=== PATIENT | female | born 1940 | race Caucasian/White ===

== ENCOUNTER 2016-07-20 06:58 | Inpatient (IN) | payer OTHER, MEDICARE ==
[2016-06-14 11:05] VITALS: BMI 27.0
--- NOTE | 2016-06-14 11:31 | PAT Medication Instructions ---
Service Date Jun 14, 2016. Current Home Medication List Amlodipine (Norvasc), 10 MG PO HS Atenolol (Tenormin), 25 MG PO QAM Fenofibrate (Tricor), 67 MG PO QAM Ewjwikpsxme-Eqaqgjiuokw-Gzl C- (Glucosamine Chondroitin), 1 TAB PEG QAM Levothyroxine Sodium (Levothyroxine Sodium), 1 TAB PO QAM Multivitamin (Multivitamin), 1 TAB PO QAM Pravastatin (Pravachol ), 80 MG PO HS Medication Instructions For Your Scheduled Surgery - Hold the following medications 2 weeks prior to surgery: Vylcidsvvki-Estptquiacw-Gsy C- (Glucosamine Chondroitin), 1 TAB PEG QAM - Hold the following medications the morning of surgery: Multivitamin (Multivitamin), 1 TAB PO QAM Fenofibrate (Tricor), 67 MG PO QAM - Take the following medications the morning of surgery with a sip of water: Levothyroxine Sodium (Levothyroxine Sodium), 1 TAB PO QAM Atenolol (Tenormin), 25 MG PO QAM - Take the following medications as scheduled the night before surgery: Pravastatin (Pravachol ), 80 MG PO HS Amlodipine (Norvasc), 10 MG PO HS If you have any questions please call us at [phone] (Katie Valverde PA-C) or [phone] or [phone]
[2016-06-14 12:21] LABS: BASO % 0.8 %; BASO ABS # 0.05 K/uL (0-0.2); COMPLETE YES; EOS % 1.7 %; HEMATOCRIT 41.4 % (37-47); IG% 0.2 %; LYMPH % 27.3 %; LYMPH ABS # 1.75 K/uL (1.2-3.4); MEAN CORPUSCULAR HEMOGLOBIN 28.8 pg (25-34); MEAN CORPUSCULAR HGB CONC 34.3 g/dl (32-36); MEAN PLATELET VOLUME 8.6 fL (7.4-10.4); MONO % 8.1 %; NEUT % 61.9 %; PLATELET COUNT 333 K/uL (130-400); RED BLOOD COUNT 4.93 M/uL (4.2-5.4); WHITE BLOOD COUNT 6.41 K/uL (4.8-10.8)
[2016-06-14 12:23] LABS: URINE APPEARANCE CLEAR (CLEAR); URINE BILIRUBIN NEG (NEG); URINE COLOR YELLOW; URINE EPITHELIAL CELL AUTO 0-5 /lpf (0-5); URINE NITRITE NEG (NEG); URINE SPECIFIC GRAVITY 1.009 (1.000-1.030); UROBILINOGEN NEG (NEG); ZZUR CULT IF INDIC CLEAN CATCH NO
[2016-06-14 12:32] LABS: PARTIAL THROMBOPLASTIN RATIO 1.1; PROTHROMBIN TIME (PATIENT) 10.2 SECONDS (9.0-12.0)
--- NOTE | 2016-06-14 12:46 | DIAGNOSTIC IMAGING REPORT ---
CHEST PREADMISSION(PA/LAT) CLINICAL HISTORY: Preoperative evaluation. COMPARISON STUDY: No previous studies for comparison. FINDINGS: Lung volumes are normal. There is no pneumothorax or pleural effusion. Cardiac size is normal. There is a calcified 1.8 cm right paratracheal lymph node. There is a calcified 7 mm right lower lung granuloma, likely within the lower lobe. There is no evidence of pulmonary edema. IMPRESSION: No acute cardiopulmonary findings. Electronically signed by: Yeyo Aguilar M.D. 06/14/2016 12:44 PM Dictated Date/Time: 06/14/2016 12:43 PM
[2016-06-14 12:52] LABS: MANUAL MICROSCOPIC REQUIRED? NO; REVIEW REQ? NO
[2016-06-14 13:30] LABS: ESTIMATED AVERAGE GLUCOSE 114 mg/dl; HA1C FLAG Normal (Normal)
[2016-06-14 13:58] LABS: BUN/CREATININE RATIO 15.8 (10-20); CALCIUM 9.4 mg/dl (8.5-10.1); CREATININE 0.9 mg/dl (0.60-1.20); POTASSIUM 4.2 mmol/L (3.5-5.1)
--- NOTE | 2016-06-22 19:15 | History and Physical ---
History & Physical Date Jun 22, 2016. Chief Complaint left knee pain History of Present Illness Ms Lutz is a 75 year old female who is here for a follow up of left knee pain. She presents with pain on the left side. She states that the symptoms have been chronic non-traumatic. The symptoms occur constantly with intermittent worsening. The problem is worse. Currently the patient states that the symptoms are moderate-severe. The pain is described as aching, discomforting and throbbing. The symptoms occur continuously. The symptoms are aggravated by ascending stairs, daily activities, descending stairs, first steps while awake, kneeling, movement, repetitive activities, sleeping on the affected side, squatting, standing and walking. Marzena states that the symptoms are relieved by no specific activity. In addition to left knee pain the patient is also experiencing decreased mobility, difficulty bending, difficulty going to sleep, limping, nighttime awakening, pain, stiffness, tenderness and weakness. Pertinent negatives include chills and fever. The patient has had a previous x- ray. New x-rays obtained today in our office. She has been treated with a corticosteroid injection on the right and left side equally. Patient has been treated with previous Supartz series injections to bilateral knees. Past Medical/Surgical History Past Medical History 1. Hypertension 2. High Cholesterol 3. Hypothyroidism 4. GERD Past Surgical History 1. left breast lumpectomy 2. rectal resection 1985 3. hysterectomy 1988 Additional History Hepatic Disease: No Kidney Disease: No Hypertension: Yes Heart Disease: No Bleeding Tendencies: No Infectious Diseases: No Allergies Coded Allergies: Adhesives (Verified Allergy, Unknown, SKIN IRRITATION WITH SOME BANDAIDS, 06/14/16) Hydrocodone (Verified Allergy, Unknown, ITCHY, 06/14/16) Home Medications Scheduled Amlodipine (Norvasc), 10 MG PO HS Atenolol (Tenormin), 25 MG PO QAM Fenofibrate (Tricor), 67 MG PO QAM Edeompiluzs-Hlqiyywiulq-Nvm C- (Glucosamine Chondroitin), 1 TAB PEG QAM Levothyroxine Sodium (Levothyroxine Sodium), 1 TAB PO QAM Multivitamin (Multivitamin), 1 TAB PO QAM Pravastatin (Pravachol ), 80 MG PO HS Physical Examination Skin: warm/dry, no rash Eyes: normal inspection, EOMI, sclerae normal ENT: normal ENT inspection, pharynx normal Head: normocephalic, atraumatic Neck: supple, no adenopathy, trachea midline Respiratory/Chest: lungs clear, normal breath sounds, no respiratory distress Cardiovascular: regular rate, rhythm, no edema, no murmur Abdomen / GI: normal bowel sounds, non tender Addiitonal Comments: Left Knee Physical Exam Exam Findings Details Knee ROM L * Active ROM - Flexion: 100 degrees, Extension: 5 degrees, Factors: pain, Description: Active painful ROM. Knee ROM R * Active ROM - Flexion: 100 degrees, Extension: 5 degrees, Factors: pain, Description: Active painful ROM. Strength LE Normal Strength Description - Normal lower extremity: Bilateral. Knee * Inspection - Gait: Limp. Alignment - Right: neutral, Left: varus, Clinical. Ecchymosis - Right: negative, Left: negative. Effusion - Right: mild, Left: mild. Skin - Left: surgical scars. Swelling - Right: mild, Left: mild. Maximum tenderness - Right: Medial Joint Line, Left: Medial Joint Line. Patella exam - Crepitation - Right: mild, Left: mild. Patella position - Right: neutral , Left: neutral. [facility]'s - medial - Right: Positive, Left: Positive. Knee Normal Inspection - Atrophy - Right: Absent, Left: Absent. Skin - Right: Normal. Patella exam - Apprehension - Right: Negative, Left: Negative. Q-angle - Right: Normal, Left: Normal. Oly's - Right: Negative, Left: Negative. Alvin's - lateral - Right: Negative, Left: Negative. Posterior drawer - Right : Negative, Left: Negative. Anterior drawer - Right: Negative, Left: Negative. Valgus stress - Right: Negative, Left: Negative. Varus stress - Right: Negative , Left: Negative. Extensor lag - Right: Normal, Left: Normal. Neurovascular LE Normal Neurovascular examination including reflexes, sensation , and pulses is within normal limits. Diagnostics: Study Result/Report X-RAY Knee 4 Or More Views LT knee See Details Standing weight bearing flexed knee PA views reveal [id number]-ss-fsfk articulation of the medial compartment of the knee. 90 degree flexed lateral views reveal maintenance of the joint space consistent with an intact ACL. Osteophyte formation is noted. The patellofemoral articulation showing degenerative changes. The lateral compartment is well maintained. ASSESSMENT: Severe anteromedial arthritis of the knee. bone on bone medial compartment Diagnosis Left Knee DJD -Further care discussed with patient and at this point in time has failed conservative measures and would like to proceed with a left total knee replacement. Plan on discharge will be home with home health physical therapy. DVT prophalaxis with TEDs, SCDs and will also place on aspirin 81 mg p.o. b.i.d. for a month postop. Patient will have follow up appointment in our office two weeks post op for staple/suture removal and re-evaluation. Patient otherwise has no other questions or concerns.
[2016-07-20] VITALS (8 sets, daily range): BP systolic 110–154; BP diastolic 63–80; PULSE 75–89; TEMP 36.6–37.3; O2SAT 93–97; Ht 162.6 cm; Wt 72.3 kg
[~2016-07-20] VITALS: Ht 162.6 cm; Wt 72.3 kg
--- NOTE | 2016-07-20 06:51 | History & Physical Bridge Note ---
H&P Re-Evaluation Bridge Note: I have examined the patient, reviewed the History & Physical and in the interval since the performance of the History & Physical I have noted the following changes of clinical significance: No changes noted
[~2016-07-20 06:58] MED LIST: ACETAMINOPHEN 500 MG TAB PO SCH; AMLO-114 PO; ATEN-173 PO; CEFAZOLIN 2000 MG/60 ML D5W 60 ML IV SCH; CeleBREX 200 MG CAP PO SCH; DEXAMETHASONE 4 MG TAB PO SCH; FAMOTIDINE 20 MG TAB PO SCH; FENO67CA2 PO; GABAPENTIN 300 MG CAP PO SCH; GLUCTAB7 PO; LACTATED RINGER'S 1000ML 1,000 ML IV SCH; LACTATED RINGER'S 1000ML 500 ML IV ONE; LACTATED RINGER'S 1000ML IV SCH; LEVO50TA6 PO; METOCLOPRAMIDE HCL 10 MG TAB PO SCH; MULT-506 PO; PRAV20TA PO; ROPIVACAINE 5MG/ML 30 ML 150 MG, BUPIVACAINE/EPINEPHR 0.5% MPF 30 ML, KETOROLAC TROMETH... INFIL SCH
[2016-07-20] MEDS ORDERED: Atenolol PO (07:26)
[2016-07-20] MEDS ORDERED: BUPIVACAINE 0.25% 30 ML VIAL ONE (07:34)
[2016-07-20] MEDS ORDERED: BUPIVACAINE 0.5 % 5 MG/1 ML PF 10ML VIAL ONE (07:34)
[2016-07-20] MEDS ORDERED: MIDAZOLAM HCL 1 MG/ML 2ML VIAL ONE (08:28)
[2016-07-20] MEDS ORDERED: FENTANYL CITRATE INJ 50 MCG/1 ML 2 ML VIAL ONE (08:28)
[2016-07-20] MEDS ORDERED: LACTATED RINGER'S 1000ML 1,000 ML IV PRN (08:40)
[2016-07-20] MEDS ORDERED: FENTANYL CITRATE INJ 50 MCG/1 ML 2 ML VIAL IV PRN (08:45)
[2016-07-20] MEDS ORDERED: ONDANSETRON INJ 2 MG/ML 2 ML VIAL IV PRN ×2 (08:45→10:45)
[2016-07-20] MEDS ORDERED: POVIDONE-IODINE OP SOLN 30 ML BTL ONE (08:53)
[2016-07-20] MEDS ORDERED: ORTHO JOINT ANESTHETIC ONE (08:53)
[2016-07-20] MEDS ORDERED: BACITRACIN 50000 UNIT VIAL ONE (08:53)
[2016-07-20] MEDS: TRANEXAMIC ACID INJ 1,000 MG in SODIUM CHLORIDE 0.9% 100ML 100 ML IV SCH ×2 (09:15→13:56)
[2016-07-20] MEDS ORDERED: PROPOFOL IV EMULSION 10 MG/ML 20 ML VIAL IV ONE (09:52)
[2016-07-20] MEDS ORDERED: LIDOCAINE HCL 2% 2 ML VIAL (20MG/ML) ONE (09:52)
[2016-07-20] MEDS ORDERED: PHENYLEPHRINE 100MCG/ML 5ML SYR ONE (10:01)
--- NOTE | 2016-07-20 10:35 | [facility] Post Operative Brief Note ---
Immediate Operative Summary Operative Date July 20, 2016. Pre-Operative Diagnosis Left knee degenerative joint disease Post-Operative Diagnosis Left knee degenerative joint disease Procedure(s) Performed Left Total Knee Arthroplasty, Cemented Surgeon Dr. Dilshad Mooney Sr. Vendor Management Associate Surgeon(s) Abhishek Awad PA-C Estimated Blood Loss 5ml Findings severe djd lt knee Specimens A: Left knee bone and tissue Complication(s) None Disposition Recovery Room / PACU
[2016-07-20] MEDS ORDERED: SODIUM CHLORIDE 0.9% 1000ML 1,000 ML IV SCH (10:39)
[2016-07-20] MEDS ORDERED: DiphenhydrAMINE HCL 50 MG/ML VIAL IV PRN (10:45)
[2016-07-20] MEDS ORDERED: MAGNESIUM HYDROXIDE SUSP 30 ML UDC PO PRN (10:45)
[2016-07-20] MEDS ORDERED: ZOLPIDEM TARTRATE 5 MG TAB PO PRN (10:45)
[2016-07-20] MEDS ORDERED: TRANEXAMIC ACID INJ 1,000 MG in SODIUM CHLORIDE 0.9% 100ML 100 ML IV SCH ×2 (10:45→17:30)
[2016-07-20] MEDS ORDERED: BISACODYL 10 MG SUPP PR PRN (10:45)
[2016-07-20] MEDS ORDERED: METOCLOPRAMIDE HCL INJ 5 MG/ML 2 ML VIAL IV PRN (10:45)
[2016-07-20] MEDS ORDERED: SOD PHOSPHATE/SOD BIPHOSPHATE ENEMA 132 ML BTL PR PRN (10:45)
[2016-07-20] MEDS ORDERED: CEFAZOLIN IV 1,000 MG in DEXTROSE 5% 50ML 50 ML IV SCH (10:45)
[2016-07-20] MEDS ORDERED: TRAMADOL HCL 50 MG TAB PO PRN (10:45)
[2016-07-20] MEDS ORDERED: ALUMINUM/MAGNESIUM/SIMETH (MAALOX MAX) 30 ML UDC PO PRN (10:45)
--- NOTE | 2016-07-20 10:56 | OPERATIVE REPORT ---
DATE OF OPERATION: 07/20/2016 PREOPERATIVE DIAGNOSIS: Severe end-stage degenerative joint disease, left knee. POSTOPERATIVE DIAGNOSIS: Severe end-stage degenerative joint disease, left knee. PROCEDURE: Left total knee arthroplasty utilizing Hudson \T\ Nephew Journey II patient matched knee size 5 femur, 3 tibia, 10 poly, 29 oval patella. SURGEON: Dr. Mooney. STACK MATCHER: Abhishek Awad PA-C who was necessary for prepping, draping, retraction, wound closure of deep fascia, subQ and skin and was necessary for the case. ESTIMATED BLOOD LOSS: 5 mL TOURNIQUET TIME: 45 minutes. COMPLICATIONS: None. HISTORY: The patient is a very pleasant 76-year-old white female who presents with the above complaints. She has been nonresponsive to conservative therapy including physical therapy, anti-inflammatories, relative rest, activity modification, injections and viscosupplementation, corticosteroid presents for total knee arthroplasty after discussing risks and complications. OPERATION AND FINDINGS: PROCEDURE: The patient was properly prepped and draped in supine position for total knee arthroplasty after identifying the appropriate surgical site. An anterior midline incision was made through the subcutaneous tissues down to the region of the extensor mechanism. A medial parapatellar incision was subsequently made. Meticulous hemostasis was obtained and performed at all times. The patella having been subluxed lateralward, medial and lateral meniscal remnants were excised. The patellar cut was then initially made and was sized to the appropriate size. After subluxing the tibia forward the appropriate meniscal fragments having been removed the distal femur was then cut first utilizing a Hudson and Nephew block. The distal femoral cuts and chamfer cuts were all made under direct visualization and the proximal tibial osteotomy cut was also made utilizing Hudson and Nephew blocks and checked with an extramedullary guide. The appropriate trial components on the femur and tibia were placed. Appropriate trial spacers were used to check flexion and extension gaps. With flexion and extension gaps being equal, the components were then subsequently after thorough irrigation and debridement lavage components were then subsequently cemented in the following order: femur, tibia and patella. Exparel was used for intraoperative anesthesia, the medial parapatellar incision was closed utilizing #1 Vicryl, subQ was closed with 2-0 Vicryl, skin was closed with skin clips. A sterile compression dressing was placed. The patient was taken to recovery room in stable condition. Due to the complex nature of the procedure, the entire surgery was performed with the operational assistance of Abhishek Awad PA-C. The assistant scientist, under direct supervision, was involved in the actual performance of all aspects of the surgical procedure including hemostasis, tissue retraction and incision, instrument management, patient positioning, and wound closure. I attest to the content of the Intraoperative Record and any orders documented therein. Any exceptio ns are noted below.
[2016-07-20] MEDS ORDERED: MoRPHine SULFATE 2 MG/ML CARP IV PRN (11:15)
[2016-07-20] MEDS ORDERED: OXYCODONE HCL IR 5 MG TAB (IMMEDIATE RELEASE) PO PRN (11:15)
--- NOTE | 2016-07-20 11:29 | DIAGNOSTIC IMAGING REPORT ---
LEFT KNEE 1 OR 2 VIEWS ROUTINE CLINICAL HISTORY: AP/LATERAL IN PACU LEFT KNEE postoperative COMPARISON: None. DISCUSSION: Anatomic alignment status post total left knee replacement. Good contact between prosthetic and underlying bone. Surgical drains are in position. Expected postoperative soft tissue change IMPRESSION: Anatomic alignment status post total left knee replacement Electronically signed by: Ray Sifuentes M.D. 07/20/2016 11:28 AM Dictated Date/Time: 07/20/2016 11:27 AM
--- NOTE | 2016-07-20 11:41 | Anesthesiology Progress Note ---
Anesthesia Post Op Note Date & Time July 20, 2016 at 11:41 Vital Signs Pain Intensity: 0 Vital Signs Past 12 Hours Date Time Temp Pulse Resp B/P Pulse Ox O2 Delivery O2 Flow Rate FiO2 07/20/16 11:30 36.6 80 16 134/70 96 Nasal Cannula 2 Mask 07/20/16 11:20 79 16 130/63 100 Mask 10 07/20/16 11:10 36.6 81 16 133/61 93 Mask 10 07/20/16 07:36 36.6 75 16 154/80 97 Room Air Notes Mental Status: alert / awake / arousable, participated in evaluation Pt Amnestic to Procedure: No (recall as expected) Nausea / Vomiting: adequately controlled Pain: adequately controlled Airway Patency, RR, SpO2: stable & adequate BP & HR: stable & adequate Hydration State: stable & adequate Neuraxial Anesthesia: was administered, sensory block is resolving Anesthetic Complications: no major complications apparent Pt doing very well.
[2016-07-20] MEDS: SODIUM CHLORIDE 0.9% 1000ML 1,000 ML IV SCH ×2 (13:55→22:52)
[2016-07-20] MEDS: ACETAMINOPHEN 500 MG TAB PO SCH ×2 (13:57→21:22)
[2016-07-20] MEDS ORDERED: NURSING VERBAL MED ORDER ONE (17:00)
[2016-07-20] MEDS ORDERED: ATEN50TA8 PO (17:08)
[2016-07-20] MEDS: FERROUS GLUCONATE 324 MG TAB PO SCH (17:50)
[2016-07-20] MEDS: CEFAZOLIN IV 1,000 MG in DEXTROSE 5% 50ML 50 ML IV SCH (18:12)
[2016-07-20] MEDS ORDERED: ASPIRIN 325 MG ECTAB PO SCH (21:00)
[2016-07-20] MEDS: SENNA 8.6 MG TAB PO SCH (21:00)
[2016-07-20] MEDS: DOCUSATE SODIUM 100 MG CAP PO SCH (21:20)
[2016-07-20] MEDS: ASPIRIN 325 MG ECTAB PO SCH (21:20)
[2016-07-20] MEDS: AMLODIPINE BESYLATE 5 MG TAB PO SCH (21:21)
[2016-07-20] MEDS: PRAVASTATIN SOD 40 MG TAB PO SCH (21:21)
[2016-07-21] MEDS: CEFAZOLIN IV 1,000 MG in DEXTROSE 5% 50ML 50 ML IV SCH (02:20)
[2016-07-21 03:25] VITALS: BP 117/65; PULSE 73; TEMP 36.9; O2SAT 98
[2016-07-21] MEDS: LEVOTHYROXINE 50 MCG TAB PO SCH (05:36)
[2016-07-21] MEDS: ACETAMINOPHEN 500 MG TAB PO SCH ×3 (05:36→22:37)
[2016-07-21 06:13] LABS: HEMATOCRIT 32.3 % (37-47); MEAN CORPUSCULAR HEMOGLOBIN 28.4 pg (25-34); MEAN CORPUSCULAR HGB CONC 33.4 g/dl (32-36); MEAN PLATELET VOLUME 8.8 fL (7.4-10.4); PLATELET COUNT 291 K/uL (130-400); WHITE BLOOD COUNT 14.48 K/uL (4.8-10.8)
--- NOTE | 2016-07-21 07:10 | Orthopedic Progress Note ---
Orthopedic Progress Note Date of Service July 21, 2016. Subjective Post OP Day: 1 Reports: feeling well, Denies: complaints Objective calves soft nontender, N/V intact, dressing C/D/I, A&O x3, toes mobile Date Time Temp Pulse Resp B/P Pulse Ox O2 Delivery O2 Flow Rate FiO2 07/21/16 03:25 36.9 73 16 117/65 98 Room Air 07/21/16 00:05 Room Air 07/20/16 23:45 36.8 76 16 110/63 97 Room Air 07/20/16 19:23 37.2 80 16 136/71 97 Room Air 07/20/16 16:34 87 129/75 07/20/16 15:56 36.9 89 18 122/75 94 Room Air 07/20/16 15:45 Room Air 07/20/16 13:52 37.3 86 16 134/75 95 Room Air 07/20/16 13:12 83 16 143/78 93 Room Air 07/20/16 12:45 Nasal Cannula 07/20/16 12:45 95 Nasal Cannula 2.0 07/20/16 12:45 36.9 82 16 134/77 96 Nasal Cannula 2.0 07/20/16 12:15 81 16 120/63 98 Nasal Cannula 2 Mask 07/20/16 12:00 76 15 117/68 97 Nasal Cannula 2 Mask 07/20/16 11:45 79 16 118/66 94 Nasal Cannula 2 Mask 07/20/16 11:30 36.6 80 16 134/70 96 Nasal Cannula 2 Mask 07/20/16 11:20 79 16 130/63 100 Mask 10 07/20/16 11:10 36.6 81 16 133/61 93 Mask 10 07/20/16 07:36 36.6 75 16 154/80 97 Room Air Laboratory Results 24 Hours: Test 07/21/16 05:50 Hematocrit 32.3 % Hemoglobin 10.8 g/dL Assessment & Plan Assessment: POD 1 s/p Left TKA Plan: PT/OT Planning for Home Health PT Inhouse Planning Pain Management: Ultram, Morphine, Oxy IR DVT Prophylaxis: TEDs, SCDs, ASA Discharge Planning Discharge Planning: home with home health
--- NOTE | 2016-07-21 07:48 | Anesthesiology Progress Note ---
Anesthesia Post Op Note Date & Time July 21, 2016 at 07:49 Vital Signs Pain Intensity: 3.0 Vital Signs Past 12 Hours Date Time Temp Pulse Resp B/P Pulse Ox O2 Delivery O2 Flow Rate FiO2 07/21/16 03:25 36.9 73 16 117/65 98 Room Air 07/21/16 00:05 Room Air 07/20/16 23:45 36.8 76 16 110/63 97 Room Air Notes Mental Status: alert / awake / arousable, participated in evaluation Pt Amnestic to Procedure: Yes Nausea / Vomiting: adequately controlled Pain: adequately controlled Airway Patency, RR, SpO2: stable & adequate BP & HR: stable & adequate Hydration State: stable & adequate Neuraxial Anesthesia: was administered, sensory block resolved Anesthetic Complications: no major complications apparent
[2016-07-21 07:49] VITALS: BP 140/72; PULSE 78; TEMP 36.9; O2SAT 96
[2016-07-21 08:55] VITALS: O2SAT 96
[2016-07-21] MEDS ORDERED: FENOFIBRATE 67 MG PO SCH (09:00)
[2016-07-21] MEDS ORDERED: ATENOLOL PO SCH (09:00)
[2016-07-21] MEDS: FERROUS GLUCONATE 324 MG TAB PO SCH ×3 (09:39→17:36)
[2016-07-21] MEDS: DOCUSATE SODIUM 100 MG CAP PO SCH ×2 (09:39→21:07)
[2016-07-21] MEDS: MULTIVITAMIN TAB PO SCH (09:39)
[2016-07-21] MEDS: PANTOprazole SOD 40 MG TAB PO SCH (09:39)
[2016-07-21] MEDS: ASPIRIN 325 MG ECTAB PO SCH ×2 (09:40→21:07)
[2016-07-21] MEDS: SODIUM CHLORIDE 0.9% 1000ML 1,000 ML IV SCH (09:42)
[2016-07-21 11:56] VITALS: BP 136/72; PULSE 72; TEMP 36.7; O2SAT 96
[2016-07-21 15:20] VITALS: BP 143/69; PULSE 70; TEMP 36.8; O2SAT 97
--- NOTE | 2016-07-21 16:31 | Discharge Instructions ---
Discharge Instructions Date of Service July 21, 2016. Admission Reason for Admission: Left Knee Osteoarthritis Discharge Discharge Diagnosis / Problem: Left Knee Djd Discharge Goals Goal(s): Decrease discomfort, Improve function Activity Recommendations Activity Limitations: per Instructions/Follow-up section Weightbearing Status: Left weightbearing (as tolerated) . Instructions / Follow-Up Instructions / Follow-Up ACTIVITY RECOMMENDATIONS: SELF CARE INSTRUCTIONS AFTER TOTAL KNEE REPLACEMENT A. You may need to continue a physical therapy program after discharge from the hospital. There are several options available to you. Your doctor will assist you in selecting the best one for you. 1. An out-patient facility 2 to 3 times a week for therapy or home therapy. 2. Continue working on all exercises taught to you in the hospital. Your goals should be to increase bending of your knee to 90 degrees and beyond and to fully straighten your knee. B. You may progress at your own pace from walking with a walker or crutches to a cane; then to no assistive devices. C. Make walking a part of your daily routine. Be up as much as comfortable with rest periods throughout the day. Rest with leg elevation is very important. Use the ice wrap frequently for the first 3-4 weeks. D. There are no restrictions on activities. You may ride in a car, shop, participate in conveyor installer and all social activities. E. Wear the long elastic stockings (EDD hose) 20 hours a day for 2 weeks after surgery. They can be removed several times a day for laundering and for a bath. F. You may shower, no tub baths until cleared by your doctor. SPECIAL CARE INSTRUCTIONS: VERY IMPORTANT TO READ AND REVIEW A. There are a few signs you need to watch for after you are home. Call [facility] if you notice any of the followin. Increased severe knee pain. Some pain is expected especially when you exercise. 2. Increased swelling in your leg or knee; pain or swelling of the calf muscle in either lower leg. 3. Any fluid drainage from the incision. 4. Shortness of breath or chest pain. B. Please call [facility] at if you have any concerns or questions about your operation or recovery. The doctor or his nurse will return your call promptly. C. You must take antibiotics before dental work, bladder, bowel or other surgery. Your doctor will provide you with a permanent care to carry describing this precaution. IMPORTANT: * REMEMBER TO TAKE ASPIRIN, 81 MG, TWICE DAILY FOR 4 WEEKS UNLESS OTHERWISE DIRECTED. THIS IS YOUR BLOOD THINNER. * HIGH RISK PATIENTS MAY BE PRESCRIBED A STRONGER BLOOD THINNER. THIS WILL BE PROVIDED AT DISCHARGE. * CALL IF INCREASED PAIN, REDNESS, DRAINAGE OR FEVER GREATER THAT 101. * WEAR EDD HOSE 20 HOURS PER DAY FOR 2 WEEKS. * Standard kimberley/no adhesive- Please keep incision clean and dry. You may shower. If the wound is still draining, you may keep 4x4 gauze over the wound and secure with tape or an luis a wrap. [place] should be removed in 10-14 days at the office. This appointment is likely already scheduled for you. Please call if any increased redness, drainage, or swelling. . FOLLOW UP VISIT: If appointment is not already scheduled: Please call [facility] to make a follow-up appointment for 2 weeks after your surgery at . Current Hospital Diet Patient's current hospital diet: Regular Diet Discharge Diet Recommended Diet: Regular Diet Procedures Procedures Performed: Left Total Knee Arthroplasty, Cemented Pending Studies Studies pending at discharge: no Laboratory Results Hemoglobin A1c Test 06/14/16 11:39 Range/Units Estimated Average Glucose 114 mg/dl Hemoglobin A1c 5.6 4.5-5.6 % Medical Emergencies . Who to Call and When: Medical Emergencies: If at any time you feel your situation is an emergency, please call 911 immediately. . Non-Emergent Contact Non-Emergency issues call your: Surgeon Call Non-Emergent contact if: temperature is above 101.5, your pain is not controlled, your pain is worsening, wound has increased drainage, wound has increased redness . "Provider Documentation" section prepared by Abhishek Awad. . VTE Core Measure Inpt VTE Proph given/why not?: Other Anticoagulation, T.E.D. Stockings, SCD's [place] Drug Monitoring Program Search Results: patient reviewed within database, no issues identified
[2016-07-21] MEDS: SENNA 8.6 MG TAB PO SCH (21:00)
[2016-07-21] MEDS: PRAVASTATIN SOD 40 MG TAB PO SCH (21:06)
[2016-07-21] MEDS: AMLODIPINE BESYLATE 5 MG TAB PO SCH (21:07)
[2016-07-21 23:30] VITALS: BP 116/68; PULSE 72; TEMP 36.8; O2SAT 96
[2016-07-22] MEDS: ACETAMINOPHEN 500 MG TAB PO SCH (05:55)
[2016-07-22] MEDS: LEVOTHYROXINE 50 MCG TAB PO SCH (05:56)
[2016-07-22 06:50] VITALS: BP 133/77; PULSE 73; TEMP 36.8; O2SAT 94
[2016-07-22 07:50] VITALS: BP 120/68; PULSE 82; TEMP 36.8; O2SAT 95
[2016-07-22] MEDS: MULTIVITAMIN TAB PO SCH (07:56)
[2016-07-22] MEDS: DOCUSATE SODIUM 100 MG CAP PO SCH (07:56)
[2016-07-22] MEDS: PANTOprazole SOD 40 MG TAB PO SCH (07:56)
[2016-07-22] MEDS: ASPIRIN 325 MG ECTAB PO SCH (07:56)
[2016-07-22] MEDS: FERROUS GLUCONATE 324 MG TAB PO SCH (07:56)
--- NOTE | 2016-07-22 07:57 | Orthopedic Progress Note ---
Orthopedic Progress Note Date of Service July 22, 2016. Subjective Post OP Day: 2 Reports: feeling well, Denies: SOB, calf pain, chest pain, light headedness, nausea / vomiting Additional Notes: some knee pain this AM but tolerating well. States she has itchiness with OxyIR as well as other narcotics. Stephanie SOB. Objective calves soft nontender, N/V intact, incision C/D/I, A&O x3, toes mobile Date Time Temp Pulse Resp B/P Pulse Ox O2 Delivery O2 Flow Rate FiO2 07/22/16 07:50 36.8 82 18 120/68 95 Room Air 07/22/16 06:50 36.8 73 16 133/77 94 Room Air 07/21/16 23:50 Room Air 07/21/16 23:30 36.8 72 16 116/68 96 Room Air 07/21/16 15:30 Room Air 07/21/16 15:20 36.8 70 16 143/69 97 Room Air 07/21/16 13:00 Room Air 07/21/16 11:56 36.7 72 20 136/72 96 Room Air 07/21/16 08:55 96 Room Air Assessment & Plan Assessment: POD 2 s/p Left TKA Plan: PT/OT Planning for Home Health PT Plan for dc today. Will give an rx for Tramadol to use for initial pain control and will use OxyIR sparingly if needed. Inhouse Planning Pain Management: Ultram, Morphine, Oxy IR DVT Prophylaxis: TEDs, SCDs, ASA Discharge Planning Discharge Planning: home with home health Pain Management: Ultram, PO Tylenol, Oxy IR DVT Prophylaxis: TEDs, ASA Therapy: Physical Therapy
[2016-07-22] MEDS ORDERED: SNK PO (07:59)
[2016-07-22] MEDS ORDERED: ACET-1138 PO (07:59)
[2016-07-22] MEDS ORDERED: ASPEC81 PO (07:59)
[2016-07-22] MEDS ORDERED: RXC5 PO (07:59)
[2016-07-22] MEDS ORDERED: ULT50X PO (07:59)
[2016-07-22 08:27] VITALS: O2SAT 95
[2016-07-22 08:38] VITALS: BP 120/68; PULSE 82; TEMP 36.8; O2SAT 95
[2016-07-22 11:19] VITALS: BP 126/72; PULSE 84; TEMP 36.5; O2SAT 95
--- NOTE | 2016-07-26 22:10 | DISCHARGE SUMMARY ---
DISCHARGE DIAGNOSIS: Degenerative joint disease, left knee. SECONDARY DIAGNOSES: Hypertension, hypercholesterolemia, hypothyroidism, gastroesophageal reflux disease. CONSULTS: None. COMPLICATIONS: None. PROCEDURES: Left total knee arthroplasty performed by Dr. Mooney on 07/20/2016. BRIEF HISTORY: As dictated in the history and physical. HOSPITAL SUMMARY: The patient was admitted on the above-noted date and had the above-noted surgery performed which she tolerated well. On the first postoperative day, the patient was feeling well and had no complaints. Calves were soft, nontender, neurovascularly intact. Dressings clean, dry and intact. Toes were mobile. Hemoglobin was 10.8 and the patient was started on physical therapy protocol and continued on DVT prophylaxis and pain management. By her second postoperative day, she was feeling well. She was having some knee pain that morning but was tolerating well. She stated that she was having some itchiness with the OxyIR as well as narcotics. She denies shortness of breath. Calves were soft, nontender, neurovascularly intact. Incision was clean, dry and intact. Toes were mobile. Vital signs were stable. She was afebrile. She was progressing with her physical therapy and plans were for her to be given a prescription for tramadol, to use for her initial pain control and OxyIR sparingly if needed. She was otherwise remaining stable and it was felt she could be discharged to home. For further review, please see chart. LABORATORY AND X-RAY DATA: As per chart. DISCHARGE INSTRUCTIONS: The patient was discharged to home in satisfactory condition on 07/22/2016. DIET: Regular. ACTIVITY: Weightbearing as tolerated left lower extremity. Follow TK instruction sheets and special care instructions as noted. FOLLOWUP: Follow up with Dr. Mooney in 2 weeks. The patient to call for appointment if one has not been made for you. DISCHARGE MEDICATIONS: Acetaminophen 1000 mg p.o. q. 8 hours, aspirin 81 mg p.o. b.i.d., oxycodone 5-10 mg p.o. q. 4 hours p.r.n., senna 17.2 mg at bedtime, tramadol 50-100 mg p.o. q. 4 hours p.r.n., resume taking Norvasc 10 mg p.o. at bedtime, atenolol 50 mg p.o. daily, fenofibrate 67 mg p.o. q.a.m., glucosamine 1 tab p.o. q.a.m., levothyroxine 50 mcg p.o. q.a.m., multivitamin 1 tab p.o. q.a.m., and pravastatin 80 mg at bedtime.
== END 2016-07-22 12:37 | disposition home health service (06) | DRG 470 ==
LOC: ENRESERVDT → ENRESERVTM → C.ACU 06:58 → C.3E 08:00
PROVIDERS: ADMIT Orthopaedic Surgery; ATTEND Orthopaedic Surgery
PROC: 0SRD0J9 Replacement of Left Knee Joint with Synthetic Substitute, Cemented, Open Approach (ICD-10-PCS; principal; 2016-07-20 09:15)
DX: M17.12 Unilateral primary osteoarthritis, left knee (principal); I10 Essential (primary) hypertension; E78.00 Pure hypercholesterolemia, unspecified; E03.9 Hypothyroidism, unspecified; Z79.899 Other long term (current) drug therapy

== ENCOUNTER 2021-02-04 07:51 | Observation (INO) ==
--- NOTE | 2021-01-22 12:47 | History & Physical Report ---
Date of Service January 22, 2021 date of surgery: 02/04/21 Procedure: Right Total Knee Arthroplasty Surgeon: Dilshad Mooney Assessment & Plan (1) Arthritis of right knee: Plan: presents with continued pain and decreased ROM in her right knee. she has had prior visco injections and cortisone without relief. her xrays show advanced DJD of the right knee. we have discussed options and she would like to proceed with Right knee TKA S&N block knee, she had this on her left knee and is pleased with this. will obtain med clearance from Dr Grissom. The risks and benefits have been discussed including, but not limited to, risk of infection, nerve injury, stiffness, loss of motion, failure to improve, etc. Reasonable outcomes and options of treatment were discussed. An explanation of appropriate alternatives to the procedure that may be advantageous were di scussed and their risks and benefits, as well as the risks and benefits of not proceeding with treatment. I offered to answer any additional inquiries concerning the treatment involved. All the patient's questions were answered. The patient is agreeable, understanding of the treatment plan and alternatives, and wishes to proceed with the treatment plan. History of Present Illness Chief Complaint: right knee pain Primary Care Provider: Caridad Grissom Marzena is a 80 year old female who complains of right knee pain, presents for pre-op evaluation prior to a right total knee replacement by Dr Mooney at [facility]. she complains of pain, crepitus, decreased range of motion, instability and stiffness in her right knee. she states that the symptoms have been chronic and non-traumatic and states that the symptoms are moderate-severe. The pain is described as aching, sharp and throbbing and rated as 7/10. The symptoms are aggravated by ascending stairs, daily activities, first steps while awake walking. Prior NSAIDs include IBU and Aleve. she has been treated with previous cortisone and visco injections in the past without much relief. Allergies Allergy/AdvReac Type Severity Reaction Status Date / Time hydrocodone Allergy Intermediate Itchy Verified 10/17/20 10:57 latex Allergy Mild Rash Verified 10/17/20 10:57 adhesive AdvReac Mild Skin Verified 10/17/20 10:57 irritation (with some bandaids) Home Medications Medication Instructions Recorded Confirmed Type amlodipine 10 mg tablet 10 mg PO PM 10/15/20 10/15/20 History aspirin 81 mg tablet 81 mg PO PM 10/15/20 10/15/20 History atenolol 50 mg tablet 50 mg PO QAM 10/15/20 10/15/20 History atorvastatin 20 mg tablet 20 mg PO PM 10/15/20 10/15/20 History fenofibrate micronized 67 mg 67 mg PO PM 10/15/20 10/15/20 History capsule glucosamine sulf dipot 2 cap PO QAM 10/15/20 10/15/20 History chlr,msm,chond 550 mg-C 30 mg-aggie 1 mg capsule (Glucosamine Chondroitin) indapamide 1.25 mg tablet 1.25 mg PO QAM 10/15/20 10/15/20 History levothyroxine 75 mcg tablet 75 mcg PO QAM 10/15/20 10/15/20 History multivitamin 1 tab PO QAM 10/15/20 10/15/20 History omeprazole magnesium 20 mg 20 mg PO DAILY PRN 10/15/20 10/15/20 History tablet,delayed release (Prilosec OTC) diphenhydramine 25 1 tab PO HS 11/05/20 11/05/20 History mg-acetaminophen 500 mg tablet (Acetaminophen PM) Past Med/Surg History Medical History 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 Cataract GERD (gastroesophageal reflux disease) Hearing deficit B/L SELBY HLD (hyperlipidemia) HTN (hypertension) Hypothyroidism Left bundle branch block Chronic (indication for 2018 echo was LBBB), previously evaluated by cardio/unremarkable echo (DRCA)- discharged by cardio Osteoarthritis Surgical History History of colonoscopy History of esophagogastroduodenoscopy (EGD) History of hysterectomy with unilateral oophorectomy History of left knee replacement Left TKA (07/20/16): SAB at L4-L5 (x2 attempts) + PNB at [facility] History of lumpectomy benign History of resection of rectum Family History Daughter Postoperative nausea Son Postoperative nausea Sister Diabetes Sister Colon cancer Social History Smoking Status: Never smoker Second Hand Exposure: No; Hx Alcohol Use: Yes Hx Substance Use: No Preferred Language: Hungarian Communication Ability: Effective Hall Worker Required: No Beliefs That Will Affect Care: None and Nondenominational Nondenominational Beliefs: Shinto Current Living Situation: Spouse Feels Safe at Home: Yes Assistive Devices: Glasses and Hearing Aid - Bilateral Review of Systems Review of Systems: All systems reviewed & are unremarkable except as noted in HPI & below Constitutional: no fever, no chills and no sweats Respiratory: no cough and no dyspnea Cardiovascular: no chest pain, no dyspnea and no orthopnea Gastrointestinal: no abdominal pain, no nausea and no vomiting Musculoskeletal: as per Subjective / HPI Physical Exam Physical Exam: HT: 5ft 4in WT: 71kg Constitutional: WD/WN, vitals as above no acute distress Respiratory: normal respiratory effort, lungs clear to auscultation no respiratory distress, no labored breathing and does not use accessory muscles Cardiovascular: RRR, no murmur, no edema Gastrointestinal (Abdomen): normal bowel sounds, soft, nontender, no hepatosplenomegaly Musculoskeletal: Knee: + knee abnormal to inspection (RIGHT KNEE), + effusion (+1 effusion), + surgical incision (well healed portals), + limited ROM of knee (ROM 0/3/110), + knee ROM with crepitation, + joint line tenderness (medial joint line) and + Carolina's sign positive; no deformity, no skin erythema, no ecchymosis, no valgus laxity, no varus laxity, anterior drawer test negative, Oly's sign negative and pivot shift test negative Results & Data Results & Data ([facility]) Diagnostic Findings Right Knee X-ray: Right knee series showing advanced degenerative changes to the right knee, narrowing of the medial compartment and patello-femoral joint with patellar spurring noted, findings showing joint space narrowing of the medial compartment and patello-femoral joint, osteophyte formation and subchondral sclerosis noted. overall varus alignment. no acute bony pathology noted.
--- NOTE | 2021-01-28 11:42 | Anesthesiology Consultation ---
Date of Service January 28, 2021 Assessment & Plan Chart Review Chart Review: Acceptable Risk for Surgery and Patient NOT seen in Pre Admission Testing History Surgery Operation Date: 02/04/21 09:30 Proposed Procedures p Right Total Knee Arthroplasty - Dilshad Mooney DO Height/Weight Height: 5 ft 4 in Weight: 68.039 kg Allergies Allergy/AdvReac Type Severity Reaction Status Date / Time hydrocodone Allergy Intermediate Itchy Verified 01/28/21 10:57 latex Allergy Mild Rash Verified 01/28/21 10:57 adhesive AdvReac Mild Skin Verified 01/28/21 10:57 irritation (with some bandaids) Medications Home Medications Medication Instructions Recorded Confirmed Last Taken amlodipine 10 mg tablet 10 mg PO PM 10/15/20 01/28/21 Unknown atenolol 50 mg tablet 50 mg PO QAM 10/15/20 01/28/21 Unknown atorvastatin 20 mg tablet 20 mg PO PM 10/15/20 01/28/21 Unknown fenofibrate micronized 67 mg 67 mg PO PM 10/15/20 01/28/21 Unknown capsule glucosamine sulf dipot 2 cap PO QAM 10/15/20 01/28/21 Unknown chlr,msm,chond 550 mg-C 30 mg-aggie 1 mg capsule (Glucosamine Chondroitin) indapamide 1.25 mg tablet 1.25 mg PO QAM 10/15/20 01/28/21 Unknown levothyroxine 75 mcg tablet 75 mcg PO QAM 10/15/20 01/28/21 Unknown multivitamin 1 tab PO QAM 10/15/20 01/28/21 Unknown omeprazole magnesium 20 mg 20 mg PO DAILY PRN 10/15/20 01/28/21 Unknown tablet,delayed release (Prilosec OTC) diphenhydramine 25 1 tab PO HS 11/05/20 01/28/21 Unknown mg-acetaminophen 500 mg tablet (Acetaminophen PM) aspirin 81 mg tablet,delayed 81 mg PO QPM 01/28/21 01/28/21 Unknown release Past Medical History Medical History 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 Cataract GERD (gastroesophageal reflux disease) Hearing deficit B/L SELBY HLD (hyperlipidemia) HTN (hypertension) Hypothyroidism Left bundle branch block Chronic (indication for 2018 echo was LBBB), previously evaluated by cardio/unremarkable echo (DRCA)- discharged by cardio Osteoarthritis Past Family History Family History Daughter Postoperative nausea Son Postoperative nausea Sister Diabetes Sister Colon cancer Past Surgical History Surgical History History of colonoscopy History of esophagogastroduodenoscopy (EGD) History of hysterectomy with unilateral oophorectomy History of left knee replacement Left TKA (07/20/16): SAB at L4-L5 (x2 attempts) + PNB at [facility] History of lumpectomy benign History of resection of rectum Social History Smoking Status: Never smoker Do You Dip or Chew Tobacco: No Hx Alcohol Use: No alcohol intake frequency: holidays/special occasions only Hx Substance Use: No substance use type: does not use Lab Results Anesthesia Preop Results Results Anesthesia Widget: WBC 6.75 K/uL (4.8-10.8) 01/22/21 Hgb 14.6 g/dL (12.0-16.0) 01/22/21 Hct 43.6 % (37-47) 01/22/21 Plt 450 K/uL (130-400) H 01/22/21 Na 139 mmol/L (136-145) 01/22/21 K 4.0 mmol/L (3.5-5.1) 01/22/21 Cl 103 mmol/L (98-107) 01/22/21 CO2 29 mmol/L (21-32) 01/22/21 BUN 13 mg/dl (7-18) 01/22/21 Creat 0.88 mg/dl (0.6-1.2) 01/22/21 Glucose Level 92 mg/dl (70-99) 01/22/21 PT 9.7 Seconds (9.0-12.0) 01/22/21 PTT 27.5 Seconds (21.0-31.0) 01/22/21 INR 1.0 (0.9-1.1) 01/22/21 HA1c 5.9 % (4.5-5.6) H 01/22/21 Urine Color Yellow 01/22/21 Urine Appearance Clear (Clear) 01/22/21 Urine pH 7.0 (4.5-7.5) 01/22/21 Urine Specific [place] 1.019 (1.000-1.030) 01/22/21 Urine Protein Negative (Negative) 01/22/21 Urine Glucose (UA) Negative (Negative) 01/22/21 Urine Ketones Negative (Negative) 01/22/21 Urine Blood Negative (Negative) 01/22/21 Urine Nitrite Negative (Negative) 01/22/21 Urine Bilirubin Negative (Negative) 01/22/21 Urine Urobilinogen Negative (Negative) 01/22/21 Urine Leukocyte Esterase Negative (Negative) 01/22/21
[~2021-02-04 07:51] MED LIST changes: -AMLO-114 PO; -ATEN-173 PO; -CEFAZOLIN 2000 MG/60 ML D5W 60 ML IV SCH; -DEXAMETHASONE 4 MG TAB PO SCH; -FENO67CA2 PO; -GLUCTAB7 PO; -LACTATED RINGER'S 1000ML 1,000 ML IV SCH; -LACTATED RINGER'S 1000ML 500 ML IV ONE; -LACTATED RINGER'S 1000ML IV SCH; -LEVO50TA6 PO; +LR 500ML BOLUS, THEN 15ML/HR IV SCH; -METOCLOPRAMIDE HCL 10 MG TAB PO SCH; +METOCLOPRAMIDE HCL 10 MG TABLET PO SCH; -MULT-506 PO; -PRAV20TA PO; +ROPIVACAINE 0.5% HCL/PF 150 MG, BUPIVACAINE 0.75% MPF 20 ML, EPINEPHrine 30MG/30ML (OR ... INSTIL SCH; -ROPIVACAINE 5MG/ML 30 ML 150 MG, BUPIVACAINE/EPINEPHR 0.5% MPF 30 ML, KETOROLAC TROMETH... INFIL SCH; +TRANEXAMIC ACID 1,000 MG **IV Intra-op IV SCH; +TRANEXAMIC ACID 1,000 MG **IV Pre-op IV SCH; +ceFAZolin 1000MG 1,000 MG/7.5 ML SYR IV SCH; +oxyCODONE HCL 10 MG TABCR (OxyCONTIN) PO SCH
[2021-02-04] MEDS ORDERED: BUPIVACAINE 0.5 % 5 MG/1 ML PF 10ML VIAL ONE ×2 (07:52→09:40)
--- NOTE | 2021-02-04 08:44 | History & Physical Bridge Note ---
Date of Service February 04, 2021 History & Physical Bridge Note I have examined the patient, reviewed the History & Physical and in the interval since the performance of the History & Physical I have noted the following changes of clinical significance: no changes noted
[2021-02-04] MEDS ORDERED: MIDAZOLAM HCL 1 MG/ML 2ML VIAL ONE (10:10)
[2021-02-04] MEDS ORDERED: fentaNYL citrate 100 MCG/2 ML VIAL IV PRN (10:40)
[2021-02-04] MEDS ORDERED: ONDANSETRON INJ 2 MG/ML 2 ML VIAL IV PRN ×2 (10:40→19:00)
[2021-02-04] MEDS ORDERED: ePHEDrine sulfate 50 MG/ML AMP IV PRN (10:40)
[2021-02-04] MEDS ORDERED: HYDROmorphone INJ 2 MG/ML SYR/VIAL IV PRN (10:40)
[2021-02-04] MEDS ORDERED: ATROPINE SULFATE 0.1 MG/ML 10ML SYR IV PRN (10:40)
[2021-02-04] MEDS ORDERED: LIDOCAINE 2% 2 ML VIAL/AMP(20MG/ML) INFIL ONE (10:53)
[2021-02-04] MEDS ORDERED: KETAMINE 50 MG/5 ML SYRINGE ONE (10:53)
[2021-02-04] MEDS ORDERED: ONDANSETRON INJ 2 MG/ML 2 ML VIAL ONE ×2 (10:53→13:20)
[2021-02-04] MEDS ORDERED: PROPOFOL IV EMULSION 10 MG/ML 20 ML VIAL IV ONE (10:53)
[2021-02-04] MEDS ORDERED: DEXAMETHASONE SOD INJ 4 MG/ML VIAL ONE (10:53)
[2021-02-04] MEDS ORDERED: ORTHO JOINT ANESTHETIC ONE (11:26)
[2021-02-04] MEDS ORDERED: fentaNYL citrate 100 MCG/2 ML VIAL ONE (12:09)
[2021-02-04] MEDS ORDERED: LABETALOL HCL IV 5 MG/ML 20ML IV ONE (12:40)
--- NOTE | 2021-02-04 12:59 | Operative Report ---
Post Operative Report Pre & Post Diagnosis Operation Date: 02/04/21 10:20 Pre-Op Diagnosis: Right Knee Osteoarthritis Post-Op Diagnosis: Right Knee Osteoarthritis I identified the patient and participated in the time-out.: Yes Procedure Operation Date: 02/04/21 10:20 Actual Procedures p Right Total Knee Arthroplasty(Right) utilizing [employer] 2 patient matched total knee arthroplasty size femur 4 tibia for polyfifteen constrained patella 29 oval Dilshad Mooney DO Surgeon Dilshad Mooney DO Phlebotomy Coordinator Abhishek LINARES Estimated Blood Loss 10 Findings Consistent with Post-Op Diagnosis Patient is a severe end-stage DJD right knee no response to conservative management patient is eburnated [id number] marginal osteophytes subchondral cystic changes moderate to large effusion Specimens Bone and cartilage Drains Medium bore Hemovac Anesthesia Type MAC Spinal Regional Complications none Disposition Accompanied Patient To Recovery: No Disposition: Recovery Room Indications Patient presents with severe end-stage tricompartmental DJD failing attempted conservative management and physical therapy anti-inflammatories relative rest activity modification corticosteroid injection viscosupplementation the above intraoperative findings were noted Description of Procedure After proper prepping and draping of the Right lower extremity anterior midline incision was made over the region of the extensor extensor mechanism after meticulous hemostasis was obtained and maintained in subcutaneous tissues a medial parapatellar incision was made The patella was subluxed lateralward the medial lateral gutter were cleaned from any hypertrophic synovitis and scar tissue of the distal femoral block was placed and the distal femoral osteotomy cut was made subsequently the chamfers anterior and posterior osteotomy cuts were made utilizing the 4-in-1 block the tibia was subsequently subluxed anteriorward medial and ateral meniscal remnants were excised in their entirety remnants of the anterior and posterior cruciate ligaments were excised in their entirety excellent exposure of the proximal tibia was obtained the tibial osteotomy guide was placed on the proximal tibial osteotomy cut was made once again the knee was irrigated with copious amounts of sterile saline solution the patella was subsequently everted lateralward thickened scar tissue around the patella was removed the patella was subsequently cut utilizing a freehand technique and was drilled prepared for final preparation and placement of patella socially flexion-extension gaps were checked and the equal and symmetric trials were placed to the appropriate femoral and tibial trials with poly-spacer being placed for equal flexion and extension gaps and full range of motion including extension to 0 and flexion to 140 the trial components after having been taken to recovery range of motion was subsequently removed meticulous hemostasis was obtained and maintained subsequently a knee block injection of joint cocktail including ropivacaine 0.5% 150 mg. Bupivacaine 0.5% epinephrine 1-200,030 mL's toradol 30 mg dexamethasone 4 mg ketamine 10 mg clonidine 100 micrograms normal saline solution 30 mg was infiltrated into the soft tissues of the posterior knee medial lateral gutters and periosteal synovium special attention was paid to protect neurovascular structures at all times subsequently trial components having been removed the knee was irrigated with sterile saline solution. debris was removed the proximal tibia was subsequently prepared and was made ready for the placement of the tibial component tibial component was also cemented and tamped into position the femoral component was subsequently placed and cemented in the position the patellar component was subsequently cemented in position because hemostasis once again obtained and maintained wound having been thoroughly irrigated with debridement and debridement lavage was performed as well as a medial parapatellar incision closed with #1 Vicryl in interrupted fashion subcutaneous was closed with #2 Vicryl skin was closed with skin clips. PA-C was necessary for prepping and drapping as well as wound closure of deep fascia Sub cutaneous tissue and skin and was necessary for the case. A sterile compressive dressing was placed patient was taken to recovery in stable condition of report dictated by Vinicio I attest to the content of the Intraoperative Record and any orders documented therein. Any exceptions are noted below. I attest to the content of the Intraoperative Record and any orders documented therein. Any exceptions are noted below.
[2021-02-04] MEDS ORDERED: KETOROLAC 30 MG/ML VIAL ONE (13:16)
--- NOTE | 2021-02-04 14:03 | Anesthesiology Progress Note ---
Date of Service February 04, 2021 Anesthesia Post Procedure Vital Signs Vital Signs: Temp Pulse Pulse Resp BP BP Pulse Ox 02/04/21 14:00 79 15 137/62 98 02/04/21 13:50 74 12 125/76 96 02/04/21 13:40 37.2 C 70 12 110/65 90 02/04/21 11:35 16 113/64 99 02/04/21 11:25 18 123/65 99 02/04/21 11:15 16 125/67 99 02/04/21 11:05 16 120/66 99 02/04/21 09:14 36.9 C 72 18 140/79 95 Transfer of Care Handoff Completed per policy Notes Mental Status: alert / awake / arousable and participated in evaluation Patient Amnestic to Procedure: Yes Nausea / Vomiting: adequately controlled Pain: adequately controlled Airway Patency, RR, SpO2: stable & adequate BP & HR: stable & adequate Hydration State: stable & adequate Anesthetic Complications: no major complications apparent and Pt Satisfied with anesthetic care
--- NOTE | 2021-02-04 14:26 | XRay Report ---
XR knee RT 1 or 2V routine CLINICAL HISTORY: Postoperative evaluation. COMPARISON: None FINDINGS: Alignment of the total right knee arthroplasty is anatomic. There is no periprosthetic fra cture or unexpected radiopaque foreign body. There are surgical drains. IMPRESSION: Expected findings following total right knee arthroplasty. ACT 112: Negative or not required by law. Electronically signed by: Yeyo Aguilar M.D. 02/04/2021 2:24 PM
[2021-02-04] MEDS ORDERED: MAGNESIUM HYDROXIDE SUSP 30 ML UDC PO PRN (19:00)
[2021-02-04] MEDS ORDERED: bisacodyL 10 MG SUPP PR PRN (19:00)
[2021-02-04] MEDS ORDERED: HYDROmorphone INJ 0.5 MG/0.5 ML SYR IV PRN (19:00)
[2021-02-04] MEDS ORDERED: NALOXONE HCL 0.4 MG/1 ML VIAL/CARP IV PRN (19:00)
[2021-02-04] MEDS ORDERED: oxyCODONE HCL IR 5 MG TAB (IMMEDIATE RELEASE) PO PRN (19:00)
[2021-02-04] MEDS: SODIUM CHLORIDE 0.9% 1000ML 1,000 ML IV SCH (20:06)
[2021-02-04] MEDS: ACETAMINOPHEN 500 MG TAB PO SCH (20:06)
[2021-02-04] MEDS: ceFAZolin 1000MG 1,000 MG/7.5 ML SYR IV SCH (20:07)
[2021-02-04] MEDS: ASPIRIN 81 MG ECTAB PO SCH (20:09)
[2021-02-04] MEDS: DOCUSATE SODIUM 100 MG CAP PO SCH (20:13)
[2021-02-04] MEDS ORDERED: amLODIPine BESYLATE 5 MG TAB PO SCH (21:00)
[2021-02-04] MEDS ORDERED: ATORVASTATIN 20 MG TAB PO SCH (21:00)
[2021-02-04] MEDS ORDERED: FENOFIBRATE NANOCRYSTALLIZED 48 MG TABLET PO SCH (21:00)
[2021-02-04] MEDS ORDERED: SENNA 8.6 MG TAB PO SCH (21:00)
[2021-02-05] MEDS: ceFAZolin 1000MG 1,000 MG/7.5 ML SYR IV SCH (05:45)
[2021-02-05] MEDS: ACETAMINOPHEN 500 MG TAB PO SCH (05:45)
[2021-02-05 06:15] LABS: Hematocrit (blood only) 33.4 % (37-47); Hemoglobin 11.2 g/dL (12.0-16.0); Mean Corpuscular Hemoglobin 28.5 pg (25-34); Mean Corpuscular Hgb Conc 33.5 g/dL (32-36); Mean Platelet Volume 8.6 fL (7.4-10.4); Platelet Count 329 K/uL (130-400); RDW Coefficient of Variation 12.8 % (11.5-14.5); RDW Standard Deviation 39.5 fL (36.4-46.3); Red Blood Count 3.93 M/uL (4.2-5.4); White Blood Count 14.97 K/uL (4.8-10.8)
[2021-02-05] MEDS: SODIUM CHLORIDE 0.9% 1000ML 1,000 ML IV SCH (06:24)
[2021-02-05] MEDS ORDERED: LEVOTHYROXINE SODIUM 75 MCG TABLET PO SCH (06:30)
[2021-02-05 06:42] LABS: Calcium 8.8 mg/dl (8.5-10.1); Creatinine Clr Calc Pharmacy 56.8 ml/min; Est GFR (African American) 85.9 ml/min; Est GFR (Non-African American) 74.1 ml/min; Potassium 3.8 mmol/L (3.5-5.1)
[2021-02-05] MEDS: DOCUSATE SODIUM 100 MG CAP PO SCH (08:34)
[2021-02-05] MEDS: ASPIRIN 81 MG ECTAB PO SCH (08:34)
[2021-02-05] MEDS ORDERED: INDAPAMIDE 1.25 MG TAB PO SCH (09:00)
[2021-02-05] MEDS ORDERED: MULTIVITAMIN TAB PO SCH (09:00)
[2021-02-05] MEDS ORDERED: ATENOLOL 50 MG TABLET PO SCH (09:00)
--- NOTE | 2021-02-05 09:18 | Orthopedic Progress Note ---
Date of Service February 05, 2021 Assessment & Plan (1) Arthritis of right knee: Plan: Postop day 1 status post right TKA. PT/OT protocols. Weightbearing as tolerated. DVT prophylaxis-aspirin p.o. twice daily, SCDs, EDD walker. Pain management as written. Mild leukocytosis-likely secondary to surgical stress and possible preoperative steroids. Patient remaining afebrile and asymptomatic. DC planning-patient is hoping for home health services upon discharge. Plan for discharge to home today if she is progressing with her physical therapy and home health arrangements have been made. Admission and Anticipated Discharge Date Admission Date: February 04, 2021 Supervising Physician Co-Signing Physician Notes Patient seen and examined. Agree with VIJAY Awad's note as above. Pain is well controlled. She is ambulated several times. She feels ready for discharge home today. Subjective Postop day 1 Patient sitting at her bedside this morning. Awake and alert. Brushing her teeth and cleaning up this morning. States she did have some discomfort last ni ght however this morning she is doing okay. Pain is controlled. Denies shortness of breath, chest pain, lightheadedness. She is hoping to go home today. Physical Exam Physical Exam: Dressings are clean, dry, and intact. Calves are soft and nontender. Neurovascular is intact. Toes are mobile. She has good dorsiflexion and plantarflexion of her foot. Hemovac drainage was 250 cc from the previous shift. Results & Data ([facility]) Vital Signs (Past 12 Hours) Vital Signs Temp Pulse Resp BP Pulse Ox 02/05/21 06:30 37.2 C 84 16 130/64 92 Laboratory Results Laboratory Results WBC 14.97 K/uL (4.8-10.8) H 02/05/21 05:39 RBC 3.93 M/uL (4.2-5.4) L 02/05/21 05:39 Hgb 11.2 g/dL (12.0-16.0) L 02/05/21 05:39 Hct 33.4 % (37-47) L 02/05/21 05:39 MCV 85.0 fL (80-100) 02/05/21 05:39 MCH 28.5 pg (25-34) 02/05/21 05:39 MCHC 33.5 g/dL (32-36) 02/05/21 05:39 RDW Std Deviation 39.5 fL (36.4-46.3) 02/05/21 05:39 RDW Coeff of Walter 12.8 % (11.5-14.5) 02/05/21 05:39 Plt Count 329 K/uL (130-400) 02/05/21 05:39 MPV 8.6 fL (7.4-10.4) 02/05/21 05:39 Sodium 134 mmol/L (136-145) L 02/05/21 05:39 Potassium 3.8 mmol/L (3.5-5.1) 02/05/21 05:39 Chloride 102 mmol/L (98-107) 02/05/21 05:39 Carbon Dioxide 27 mmol/L (21-32) 02/05/21 05:39 Anion Gap 5.0 (3-11) 02/05/21 05:39 BUN 16 mg/dl (7-18) 02/05/21 05:39 Creatinine 0.76 mg/dl (0.6-1.2) 02/05/21 05:39 Est Cr Clr Drug Dosing 56.8 ml/min 02/05/21 05:39 Est GFR ( Amer) 85.9 ml/min 02/05/21 05:39 Est GFR (Non-Af Amer) 74.1 ml/min 02/05/21 05:39 BUN/Creatinine Ratio 21.0 (10-20) H 02/05/21 05:39 Glucose 123 mg/dl (70-99) H 02/05/21 05:39 Calcium 8.8 mg/dl (8.5-10.1) 02/05/21 05:39 SARS-CoV-2, RNA, NAAT NEGATIVE (NEGATIVE) 02/04/21 08:13 Blood Type O Positive 02/04/21 08:24 Antibody Screen NEGATIVE 02/04/21 08:24 Impressions Knee X-Ray 02/04/21 13:47 XR knee RT 1 or 2V routine CLINICAL HISTORY: Postoperative evaluation. COMPARISON: None FINDINGS: Alignment of the total right knee arthroplasty is anatomic. There is no periprosthetic fracture or unexpected radiopaque foreign body. There are surgical drains. IMPRESSION: Expected findings following total right knee arthroplasty. ACT 112: Negative or not required by law. Electronically signed by: Yeyo Aguilar M.D. 02/04/2021 2:24 PM
--- NOTE | 2021-02-08 15:15 | Discharge Summary ---
Date of Service February 08, 2021 Admission HPI Per Admitting Provider Marzena is a 80 year old female who complains of right knee pain, presents for pre-op evaluation prior to a right total knee replacement by Dr Mooney at [facility]. she complains of pain, crepitus, decreased range of motion, instability and stiffness in her right knee. she states that the symptoms have been chronic and non-traumatic and states that the symptoms are moderate-severe. The pain is described as aching, sharp and throbbing and rated as 7/10. The symptoms are aggravated by ascending stairs, daily activities, first steps while awake walking. Prior NSAIDs include IBU and Aleve. she has been treated with previous cortisone and visco injections in the past without much relief. Admission Exam Per Admitting Provider Physical Exam: HT: 5ft 4in WT: 71kg Constitutional: WD/WN, vitals as above no acute distress Respiratory: normal respiratory effort, lungs clear to auscultation no respiratory distress, no labored breathing and does not use accessory muscles Cardiovascular: RRR, no murmur, no edema Gastrointestinal (Abdomen): normal bowel sounds, soft, nontender, no hepatosplenomegaly Musculoskeletal: Knee: + knee abnormal to inspection (RIGHT KNEE), + effusion (+1 effusion), + surgical incision (well healed portals), + limited ROM of knee (ROM 0/3/110), + knee ROM with crepitation, + joint line tenderness (medial joint line) and + Carolina's sign positive; no deformity, no skin erythema, no ecchymosis, no valgus laxity, no varus laxity, anterior drawer test negative, Oly's sign negative and pivot shift test negative Principal Diagnosis Right Knee Osteoarthritis Discharge Data Allergies Allergy/AdvReac Type Severity Reaction Status Date / Time hydrocodone Allergy Intermediate Itchy Verified 02/04/21 09:10 latex Allergy Mild Rash Verified 02/04/21 09:10 adhesive AdvReac Mild Skin Verified 02/04/21 09:10 irritation (with some bandaids) Procedures Performed Operation Date: 02/04/21 10:20 Actual Procedures p Right Total Knee Arthroplasty(Right) - Dilshad Mooney DO Ordered Studies 02/04/21 05:00 US - OR guided needle placemen Routine Hospital Course (1) Arthritis of right knee: Date of Service February 05, 2021 Assessment & Plan (1) Arthritis of right knee: Plan: Postop day 1 status post right TKA. PT/OT protocols. Weightbearing as tolerated. DVT prophylaxis-aspirin p.o. twice daily, SCDs, EDD walker. Pain management as written. Mild leukocytosis-likely secondary to surgical stress and possible preoperative steroids. Patient remaining afebrile and asymptomatic. DC planning-patient is hoping for home health services upon discharge. Plan for discharge to home today if she is progressing with her physical therapy and home health arrangements have been made. Admission and Anticipated Discharge Date Admission Date: February 04, 2021 Supervising Physician Co-Signing Physician Notes Patient seen and examined. Agree with VIJAY Awad's note as above. Pain is well controlled. She is ambulated several times. She feels ready for discharge home today. Subjective Postop day 1 Patient sitting at her bedside this morning. Awake and alert. Brushing her teeth and cleaning up this morning. States she did have some discomfort last night however this morning she is doing okay. Pain is controlled. Denies shortness of breath, chest pain, lightheadedness. She is hoping to go home today. Physical Exam Physical Exam: Dressings are clean, dry, and intact. Calves are soft and nontender. Neurovascular is intact. Toes are mobile. She has good dorsiflexion and plantarflexion of her foot. Hemovac drainage was 250 cc from the previous shift. Results & Data ([facility]) Vital Signs (Past 12 Hours) Vital Signs Temp Pulse Resp BP Pulse Ox 02/05/21 06:30 37.2 C 84 16 130/64 92 Laboratory Results Laboratory Results WBC 14.97 K/uL (4.8-10.8) H 02/05/21 05:39 RBC 3.93 M/uL (4.2-5.4) L 02/05/21 05:39 Hgb 11.2 g/dL (12.0-16.0) L 02/05/21 05:39 Hct 33.4 % (37-47) L 02/05/21 05:39 MCV 85.0 fL (80-100) 02/05/21 05:39 MCH 28.5 pg (25-34) 02/05/21 05:39 MCHC 33.5 g/dL (32-36) 02/05/21 05:39 RDW Std Deviation 39.5 fL (36.4-46.3) 02/05/21 05:39 RDW Coeff of Walter 12.8 % (11.5-14.5) 02/05/21 05:39 Plt Count 329 K/uL (130-400) 02/05/21 05:39 MPV 8.6 fL (7.4-10.4) 02/05/21 05:39 Sodium 134 mmol/L (136-145) L 02/05/21 05:39 Potassium 3.8 mmol/L (3.5-5.1) 02/05/21 05:39 Chloride 102 mmol/L (98-107) 02/05/21 05:39 Carbon Dioxide 27 mmol/L (21-32) 02/05/21 05:39 Anion Gap 5.0 (3-11) 02/05/21 05:39 BUN 16 mg/dl (7-18) 02/05/21 05:39 Creatinine 0.76 mg/dl (0.6-1.2) 02/05/21 05:39 Est Cr Clr Drug Dosing 56.8 ml/min 02/05/21 05:39 Est GFR ( Amer) 85.9 ml/min 02/05/21 05:39 Est GFR (Non-Af Amer) 74.1 ml/min 02/05/21 05:39 BUN/Creatinine Ratio 21.0 (10-20) H 02/05/21 05:39 Glucose 123 mg/dl (70-99) H 02/05/21 05:39 Calcium 8.8 mg/dl (8.5-10.1) 02/05/21 05:39 SARS-CoV-2, RNA, NAAT NEGATIVE (NEGATIVE) 02/04/21 08:13 Blood Type O Positive 02/04/21 08:24 Antibody Screen NEGATIVE 02/04/21 08:24 Impressions Knee X-Ray 02/04/21 13:47 XR knee RT 1 or 2V routine CLINICAL HISTORY: Postoperative evaluation. COMPARISON: None FINDINGS: Alignment of the total right knee arthroplasty is anatomic. There is no periprosthetic fracture or unexpected radiopaque foreign body. There are surgical drains. IMPRESSION: Expected findings following total right knee arthroplasty. ACT 112: Negative or not required by law. Total Time Total Time Spent Total Time Spent (In Minutes): 5 Discharge Plan Discharge Items Patient Disposition: Home - Home Health Services Reason For Visit: Right Knee Osteoarthritis Discharge Diagnosis: Right Knee Osteoarthritis Activity: Per Instructions section Weightbearing: Right weightbearing Weightbearing Comment: as tolerated with walker Non-emergency contact: Surgeon Call non-emergency contact if: you have any medication questions, your pain is not controlled, your temperature is above 101.5, your wound has increased redness and your wound has increased drainage Follow-up/Referrals: Dilshad Mooney DO [Surgeon] - (Follow up in 10-14 days from the day of surgery for a wound check.) Caridad Grissom D.O. [Primary Care Provider] - Diet: Heart Healthy Addtl Attending Provider Instructions: HOME HEALTH SERVICES TO DISCONTINUE HEMOVAC DRAIN AND CHANGE DRESSING TOMORROW 02/06/21. LEAVE AURE DRESSING IN PLACE FOR 7 DAYS FROM THE DAY OF SURGERY AND THEN REMOVE. KEEP WOUND COVERED UNTIL SEEN IN OFFICE FOR FIRST CHECK UP. ACTIVITY RECOMMENDATIONS: SELF CARE INSTRUCTIONS AFTER TOTAL KNEE REPLACEMENT A. You may need to continue a physical therapy program after discharge from the hospital. There are several options available to you. Your doctor will assist you in selecting the best one for you. 1. An out-patient facility 2 to 3 times a week for therapy or home therapy. 2. Continue working on all exercises taught to you in the hospital. Your goals should be to increase bending of your knee to 90 degrees and beyond and to fully straighten your knee. B. You may progress at your own pace from walking with a walker or crutches to a cane; then to no assistive devices. C. Make walking a part of your daily routine. Be up as much as comfortable with rest periods throughout the day. Rest with leg elevation is very important. Use the ice wrap frequently for the first 3-4 weeks. D. There are no restrictions on activities. You may ride in a car, shop, participate in c developer and all social activities. E. Wear the long elastic stockings (EDD hose) 20 hours a day for 2 weeks after surgery. They can be removed several times a day for laundering and for a bath. F. You may shower, no tub baths until cleared by your doctor. SPECIAL CARE INSTRUCTIONS: VERY IMPORTANT TO READ AND REVIEW A. There are a few signs you need to watch for after you are home. Call [facility] if you notice any of the followin. Increased severe knee pain. Some pain is expected especially when you exercise. 2. Increased swelling in your leg or knee; pain or swelling of the calf muscle in either lower leg. 3. Any fluid drainage from the incision. 4. Shortness of breath or chest pain. B. Please call [facility] at if you have any concerns or questions about your operation or recovery. The doctor or his nurse will return your call promptly. C. You must take antibiotics before dental work, bladder, bowel or other surgery. Your doctor will provide you with a permanent care to carry describing this precaution. IMPORTANT: * REMEMBER TO TAKE ASPIRIN, 81 MG, TWICE DAILY FOR 4 WEEKS UNLESS OTHERWISE DIRECTED. THIS IS YOUR BLOOD THINNER. * CALL IF INCREASED PAIN, REDNESS, DRAINAGE OR FEVER GREATER THAT 101. * WEAR EDD HOSE 20 HOURS PER DAY FOR 2 WEEKS. * DERMABOND Prineo- This is a mesh tape dressing that is covered with glue. It should remain in place until the incision is properly healed, usually 10-14 days. This dressing is designed to naturally slough off. You may trim the excess mesh tape as it peels off. Incision may be briefly wet in a shower. Dry immediately by blotting with a clean, dry towel. Do not bath or swim until instructed by your doctor. Do not scratch, rub, or pick at the dressing. Do not apply any topical ointments or lotions until dressing is completely removed and/or instructed by your doctor. There may be a small piece of suture material at one end of your incision. Do not pull or trim this. If it is bothersome or catching on clothing, you may cover it with a band-aid. Call with any questions. . FOLLOW UP VISIT: If appointment is not already scheduled: Please call [facility] to make a follow-up appointment for 2 weeks after your surgery at . Stand-Alone Forms: [employer], Smoking Cessation Medications and DC Order Prescriptions: New acetaminophen [Tylenol Extra Strength] 500 mg Tablet 1,000 mg PO Q8 14 Days Qty: 84 RF: 0 aspirin 81 mg Tablet,Delayed Release (Dr/Ec) 81 mg PO BID 30 Days Qty: 60 RF: 0 cefadroxil 500 mg capsule 500 mg PO BID Qty: 28 RF: 1 polyethylene glycol 3350 [Miralax] 17 gram powder in packet 17 g PO DAILY PRN (Reason: constipation) Qty: 5 RF: 0 oxycodone 5 mg Tablet 5 mg PO Q4H MDD 6 PRN (Reason: pain) Qty: 30 RF: 0 Continued multivitamin Tablet 1 tab PO QAM RF: 0 atorvastatin 20 mg Tablet 20 mg PO PM RF: 0 fenofibrate micronized 67 mg Capsule 67 mg PO PM RF: 0 levothyroxine 75 mcg Tablet 75 mcg PO QAM RF: 0 amlodipine [Norvasc] 10 mg Tablet 10 mg PO PM RF: 0 indapamide 1.25 mg Tablet 1.25 mg PO QAM RF: 0 atenolol 50 mg Tablet 50 mg PO QAM RF: 0 omeprazole magnesium [Prilosec OTC] 20 mg Tablet,Delayed Release (Dr/Ec) 20 mg PO DAILY PRN (Reason: gerd) RF: 0 Discontinued aspirin [Aspir-81] 81 mg Tablet,Delayed Release (Dr/Ec) 81 mg PO QPM RF: 0 Glucosamine Chondroitin 550-30-1 mg Capsule 2 cap PO QAM RF: 0 diphenhydramine-acetaminophen [Acetaminophen PM] 25-500 mg Tablet 1 tab PO HS RF: 0 Discharge Orders: Discharge Order (Routine); Ordered 02/05/21 Ordered By: Abhishek Awad Admission Data Admit Date/Time: 02/04/21 13:47 Attending Provider: Dilshad Mooney Admit Provider: Dilshad Mooney Primary Care Provider: Caridad Grissom Other Interventions: Discharge Summary Assessment (RN) Last Done: 02/05/21 10:37
== END 2021-02-05 12:20 | disposition home health service (06) ==
LOC: ASUINP 07:51 → ASU 07:51